=== PATIENT | male | born 1985 ===

== ENCOUNTER 2022-02-06 06:20 | Day surgery (SDC) | payer OTHER ==
[~2022-02-06 06:20] MED LIST: LEVOTHYROXINE25 MCG PO; LOSARTAN-HCTZ1 EACH PO; METFOR PO
== END 2022-02-06 17:00 | disposition home or self-care (01) ==
LOC: CIR.AMB 06:20
PROVIDERS: ATTEND Colon & Rectal Surgery
DX: K64.2 Third degree hemorrhoids (principal); Z91.018 Allergy to other foods; I10 Essential (primary) hypertension; J45.909 Unspecified asthma, uncomplicated; Z87.891 Personal history of nicotine dependence; F12.90 Cannabis use, unspecified, uncomplicated; E03.9 Hypothyroidism, unspecified; M19.90 Unspecified osteoarthritis, unspecified site; E66.9 Obesity, unspecified